=== PATIENT | female | born 1935 | race Caucasian/White ===

== ENCOUNTER 2017-07-16 10:04 | Inpatient (IN) | payer MEDICARE, OTHER ==
[~2017-07-16] VITALS: Ht 170.2 cm; Wt 85.0 kg
--- NOTE | ~2017-07-16 | CN ---
PATIENT NAME:BAUTISTA BENJAMIN MEDICAL RECORD: [id number] : 39 LOCATION:D.M2 D.2125 ADMIT DATE: 07/16/17 ACCOUNT: [id number] CONSULTING PHYSICIAN: ALIE ARREDONDO MD REFERRING PHYSICIAN: ISABEL ULLOA MD DATE OF CONSULTATION: 07/17/2017 DIAGNOSES: 1. Chest pain. 2. Pneumonia. HISTORY OF PRESENT ILLNESS: Ms. Benjamin had very atypical chest pain associated with coughing and deep inspiration. She has no cardiac history. Troponins are negative. Her EKG is normal. PHYSICAL EXAMINATION: GENERAL APPEARANCE: Well-nourished, well-developed, appears stated age. Level of distress, comfortable. PSYCHIATRIC: Mental status, alert, normal affect. Orientation, oriented to time, place and person. EYES: Lids and conjunctiva, noninjected. No discharge, no pallor. ENT: Lips, teeth, gums, normal dentition. Oropharynx, no cyanosis, no pallor. NECK: Carotid arteries, bilateral normal upstroke, no bruits, no thrills. JUGULAR VEINS: No jugular venous pressure or distention. CERVICAL LYMPH NODES: Nontender, nonenlarged. THYROID: Not enlarged. Nontender. No nodules. LUNGS: Respiratory effort, unlabored. CHEST: Normal curvature. No thoracic deformity. No chest wall tenderness. Percussion, resonant. Auscultation, clear. No wheezes, no rales, no rhonchi. CARDIOVASCULAR: Precordial exam, nondisplaced. No heaves or pericardial thrills. Rate and rhythm, regular. Heart sounds, normal S1, normal S2. No S3, no gallop, no rub. Systolic murmur, not heard. Diastolic murmur, not heard. EXTREMITIES: No cyanosis, no edema. Peripheral pulses, full and equal in all extremities, except as noted. No bruits appreciated. ABDOMEN: Soft, nondistended. Normal aorta. No bruit. Nontender. No masses. Liver, nontender, no hepatomegaly. Spleen, nontender, no splenomegaly. MUSCULOSKELETAL: No joint tenderness. No joint swelling. No erythema. NEUROLOGICAL: Normal gait, normal strength, normal tone. SKIN: Warm and dry. OVERALL IMPRESSION: Chest pain, not compatible with angina, compatible with musculoskeletal and bronchitic chest pain at this time. We will get an echo to make sure she has a normal ejection fraction and normal wall motion. No other cardiac workup treatment is necessary. TRANSINT:[id number] Voice Confirmation ID: [id number] DOCUMENT ID: [id number] CONSULT REPORT [id number] BAUTISTA BENJAMIN, ALIE GARNER at 1153 CC: [id number] DICTATION DATE: 07/17/17 1024 SUPERVISOR TELEPHONE ANSWERING SERVICE: 07/17/17 1124 ADM IN [place] [id number]
--- NOTE | ~2017-07-16 | EC ---
PATIENT:BAUTISTA BENJAMIN DATE OF SERVICE: 07/16/17 SEX: F MEDICAL RECORD: [id number] DATE OF : 39 LOCATION:D. D.212 AGE OF PATIENT: 82 ADMISSION DATE: 07/16/17 REFERRING PHYSICIAN: INTERPRETING PHYSICIAN: ALIE GANN MD ECHOCARDIOGRAM REPORT ECHO CHARGES 4 ECHO COMPLETE CLINICAL DIAGNOSIS: CP ECHOCARDIOGRAPHIC MEASUREMENTS (adult normal given) AC root (d.<3.7cm) 3.2 cm LV Septum d (<1.2 cm> 1.7 cm Valve Excursion 1.3 cm LV Septum (systole) 2.4 cm Left Atria (s.<4.0cm> 3.9 cm LVPW d(<1.2cm) 1.2 cm RV (d.<2.3cm) 2.9 cm LVPW (sytole) 1.8 cm LV diastole(<5.6CM) 5.4 cm MV E-F(>70mm/sec) cm LV systole 2.8 cm LVOT Diameter 2.0 cm MV exc.(>10mm) cm Est.ejection fraction (50-75%) % Pericardial Effusion N DOPPLER: LVIT cm/sec A 154 cm/sec E 110 cm/sec LA cm/sec RVSP 49.4 mmHg LVOT 104 cm/sec AOP1/2T m/s Asc. Ao 235 cm/sec RVOT 80.0 cm/sec RA cm/sec PA 90.0 cm/sec AV Gradient Peak 22.0 mmHg AV Mean 11.4 mmHg AV Area 1.6 cm MV Gradient Peak 11.0 mmHg MV Mean 3.1 mmHg MV Area cm COMMENTS: Cook Dinner: Damir GASTELUMOE Flake [employer] Wheat [employer] Oats: 1 Dr. Gann TAPE# PACS DATE OF SERVICE: 07/17/2017 Echocardiogram FINDINGS: 1. Left ventricular chamber size is within normal limits. Left ventricular systolic function is normal. Overall ejection fraction estimated at 60%. 2. Left atrium is within normal limits at 3.9 cm. Right atrium and right ventricular chamber sizes are mildly dilated. 3. Valvular structures have normal structure and motion. ECHOCARDIOGRAM REPORT [id number] BAUTISTA BENJAMIN 4. Doppler interrogation reveals moderate mitral regurgitation, moderate tricuspid regurgitation, no other valvular insufficiency or stenosis. Pulmonary systolic pressure is elevated estimated at 50 mmHg. 5. No evidence of pericardial effusion or left ventricular thrombus. TRANSINT:[id number] Voice Confirmation ID: [id number] DOCUMENT ID: [id number] ALIE GANN MD at 1202 CC: [id number] DICTATION DATE: 07/17/17 1415 MOTH PROOFER: 07/17/17 1422 DIS IN 07/20/17 [place] [id number] [place] [id number]
--- NOTE | ~2017-07-16 | CN ---
PATIENT NAME:BAUTISTA BENJAMIN MEDICAL RECORD: [id number] : 39 LOCATION:D. D.2125 ADMIT DATE: 07/16/17 ACCOUNT: [id number] CONSULTING PHYSICIAN: HAMLET AGGARWAL MD REFERRING PHYSICIAN: ISABEL ULLOA MD DATE OF CONSULTATION: 07/16/2017 CONSULT REQUESTING PHYSICIAN: Isabel Ulloa MD REASON FOR CONSULTATION: Pneumonia. HISTORY OF PRESENT ILLNESS: Ms. Benjamin is an 82-year-old female, who has a flu in April. Since last weekend, she is sick, she is coughing, she has shortness of breath. She was seen in the PCP office, she was given Z-MITZI, but she was getting worse. She is also complaining of left-sided chest pain, which is pleuritic in nature. Also, she vomited once. She has a fever of 100.7. REVIEW OF SYSTEMS: Mainly in the history of present illness. PAST MEDICAL HISTORY: 1. Hypertension. 2. Hypothyroidism. PAST SURGICAL HISTORY: Hysterectomy, bilateral total knee replacement. PERSONAL AND SOCIAL HISTORY: The patient is a nonsmoker, nondrinker. FAMILY HISTORY: Noncontributory. PHYSICAL EXAMINATION: GENERAL: Now, the patient is lying comfortably in bed. She is not in acute distress. VITAL SIGNS: Her pulse ox is 96% on room air. HEENT: Conjunctivae pink, sclerae nonicteric. NECK: Neck is supple, no JVD. CHEST: There is a crackle at the left base. No wheezing. HEART: Rhythm regular, normal sound, no murmur. ABDOMEN: Abdomen is soft. Bowel sounds present. No hepatosplenomegaly. RECTAL: Deferred. EXTREMITIES: No cyanosis, no clubbing, no pedal edema. SKIN: The skin is warm, normal turgor. CENTRAL NERVOUS SYSTEM: The patient is awake and alert. There are no obvious cranial nerve abnormality. The gait was not tested. LABORATORY DATA: CBC: WBC 4.8, hemoglobin 11.7, hematocrit 36.6, platelet count is 143. Chemistry: Sodium 136, potassium 3.6, BUN is 15, creatinine 0.7. CHEST RADIOGRAPH: There is infiltrate in left lower lobe. IMPRESSION: 1. Pneumonia, left lower lobe, most likely community-acquired pneumonia. The patient failed Zithromax as an outpatient. 2. Pleurisy on the left side. 3. Chest pain. CONSULT REPORT [id number] BAUTISTA BENJAMIN 4. Acute cough. 5. Febrile illness. 6. Status post influenza in April 2017. 7. Nausea and vomiting. RECOMMENDATION: 1. I will discontinue Zithromax, start on Levaquin as the patient failed Zithromax as outpatient. 2. Continue Rocephin IV. 3. Pain control with ibuprofen 600 mg per oral t.i.d. after meals. 4. Antitussive. 5. Decrease methylprednisolone IV. 6. Follow up labs and chest radiograph. Dr. Ulloa, thank you for involving me in the care of Ms. Benjamin. TRANSINT:[id number] Voice Confirmation ID: [id number] DOCUMENT ID: [id number] HAMLET AGGARWAL MD at 1340 CC: ISABEL ULLOA [id number] DICTATION DATE: 07/16/17 1543 GUT PULLER: 07/16/17 1659 DIS IN 07/20/17 [place] [id number] [place] [address]
[~2017-07-16 10:04] MED LIST: ASPIRIN EC81 M1 PO; BACLOFEN10 MG PO; CELEXA10 MG PO; COZAAR100 MG PO; FISH OIL 1,2001 CAP PO; MOBIC7.5 MG PO; NORVASC5 MG PO; PRAVASTATIN SOD10 MG PO; PRILOSEC20 MG PO; SYNTHROID112 MCG PO; VITAMIN D31000 UNIT PO
[2017-07-16 10:38] LABS: BASOPHILS 0.4 % (0-2); EOSINOPHILS 0.6 % (0-7); HEMATOCRIT 36.6 % (36.0-48.0); HEMOGLOBIN 11.7 g/dL (12-16); LYMPHOCYTES 19.7 % (15-50); MCH 27.4 pg (26.0-34.0); MCV 85.7 fL (80.0-100.0); MEAN PLATELET VOLUME 9.7 fL (7.4-10.4); MONOCYTES 9.2 % (2-11); NEUTROPHILS 70.1 % (40-80); RBC 4.27 10x6/uL (4.00-5.40); RDW 14.7 % (11.5-14.5); WBC 4.8 10x3/uL (4.8-10.8)
[2017-07-16 10:48] LABS: PLATELET COUNT 143 10x3/uL (130-400)
[2017-07-16 11:33] LABS: ALKALINE PHOSPHATASE 63 U/L (46-116); ALT (SGPT) 18 U/L (10-68); BILIRUBIN - TOTAL 0.33 mg/dL (0.2-1.3); CALC OSMOLALITY 273 mosm/kg (275-300); CALCIUM 8.5 mg/dL (8.5-10.1); CARBON DIOXIDE 26.1 mmol/L (21.0-32.0); CHLORIDE - SERUM 99 mmol/L (98-107); CREATININE - SERUM 0.7 mg/dL (0.6-1.3); GLUCOSE 112 mg/dL (74-106); POTASSIUM - SERUM 3.6 mmol/L (3.5-5.1); PROTEIN - SERUM 6.6 g/dL (6.4-8.2); SODIUM 136 mmol/L (136-145); UREA NITROGEN 15 mg/dL (7-18); eGFR NON AFRICAN AMERICAN 85 mL/min (90-120)
[2017-07-16 12:22] LABS: APPEARANCE SLT CLOUDY (CLEAR); COLOR DK YELLOW (YELLOW)
[2017-07-16 12:23] LABS: BACTERIA FEW /hpf (NONE SEEN); BILIRUBIN NEGATIVE (NEGATIVE); EPITHELIAL CELLS RARE /hpf (0-5); GLUCOSE NEGATIVE (NEGATIVE); KETONE SMALL mg/dL (NEGATIVE); NITRITE NEGATIVE (NEGATIVE); PROTEIN TRACE mg/dL (NEGATIVE); RED CELLS - URINE RARE /hpf (0-5); SPECIFIC GRAVITY 1.015 (1.005-1.020); UROBILINOGEN NORMAL (NORMAL)
[2017-07-16 15:35] LABS: CREATINE KINASE 62 UL (21-215)
[2017-07-16 15:41] LABS: TROPONIN-I < 0.017 ng/mL (0.000-0.060)
[2017-07-16 21:00] LABS: CKMB 1.5 U/L (0.0-3.6); CREATINE KINASE 74 UL (21-215)
[2017-07-16 21:09] LABS: TROPONIN-I < 0.017 ng/mL (0.000-0.060)
[2017-07-17] VITALS: BP 130/64
[2017-07-17 02:22] LABS: BASOPHILS 0.3 % (0-2); EOSINOPHILS 2.1 % (0-7); HEMATOCRIT 33.3 % (36.0-48.0); HEMOGLOBIN 10.3 g/dL (12-16); LYMPHOCYTES 32.3 % (15-50); MCH 26.5 pg (26.0-34.0); MCHC 30.9 g/dL (31.0-37.0); MCV 85.8 fL (80.0-100.0); MEAN PLATELET VOLUME 9.5 fL (7.4-10.4); MONOCYTES 10.3 % (2-11); PLATELET COUNT 119 10x3/uL (130-400); RBC 3.88 10x6/uL (4.00-5.40); RDW 14.5 % (11.5-14.5)
[2017-07-17 02:24] LABS: WBC 3.4 10x3/uL (4.8-10.8)
[2017-07-17 02:47] LABS: ALBUMIN 2.4 g/dL (3.4-5.0); ALKALINE PHOSPHATASE 49 U/L (46-116); ALT (SGPT) 15 U/L (10-68); CALC OSMOLALITY 276 mosm/kg (275-300); CALCIUM 7.2 mg/dL (8.5-10.1); CARBON DIOXIDE 27.5 mmol/L (21.0-32.0); CHLORIDE - SERUM 102 mmol/L (98-107); CKMB 2.1 U/L (0.0-3.6); CREATINE KINASE 90 UL (21-215); CREATININE - SERUM 0.6 mg/dL (0.6-1.3); GLUCOSE 115 mg/dL (74-106); POTASSIUM - SERUM 3.6 mmol/L (3.5-5.1); PROTEIN - SERUM 5.5 g/dL (6.4-8.2); SODIUM 138 mmol/L (136-145); TROPONIN-I < 0.017 ng/mL (0.000-0.060); UREA NITROGEN 13 mg/dL (7-18); eGFR NON AFRICAN AMERICAN > 90 mL/min (90-120)
[2017-07-17 08:26] VITALS: BP 142/68
[2017-07-17 11:00] VITALS: Ht 170.2 cm; Wt 85.0 kg
[2017-07-17 11:13] VITALS: BP 131/75
[2017-07-17 20:54] VITALS: BP 147/71
[2017-07-18] VITALS (7 sets, daily range): BP systolic 134–183; BP diastolic 66–81
[2017-07-18 05:43] LABS: BASOPHILS 0.3 % (0-2); EOSINOPHILS 0.3 % (0-7); HEMOGLOBIN 10.2 g/dL (12-16); IMMATURE GRANULOCYTES 0.3 % (0-5); LYMPHOCYTES 31.8 % (15-50); MCH 26.2 pg (26.0-34.0); MCHC 30.9 g/dL (31.0-37.0); MCV 84.8 fL (80.0-100.0); MEAN PLATELET VOLUME 10.5 fL (7.4-10.4); MONOCYTES 11.8 % (2-11); NEUTROPHILS 55.5 % (40-80); RBC 3.89 10x6/uL (4.00-5.40); RDW 14.1 % (11.5-14.5); WBC 3.9 10x3/uL (4.8-10.8)
[2017-07-18 05:48] LABS: PLATELET COUNT 158 10x3/uL (130-400)
[2017-07-18 06:18] LABS: ALBUMIN 2.6 g/dL (3.4-5.0); ALKALINE PHOSPHATASE 49 U/L (46-116); ALT (SGPT) 15 U/L (10-68); BILIRUBIN - TOTAL 0.27 mg/dL (0.2-1.3); CALC OSMOLALITY 275 mosm/kg (275-300); CALCIUM 8.4 mg/dL (8.5-10.1); CHLORIDE - SERUM 102 mmol/L (98-107); CREATININE - SERUM 0.6 mg/dL (0.6-1.3); GLUCOSE 108 mg/dL (74-106); POTASSIUM - SERUM 3.6 mmol/L (3.5-5.1); PROTEIN - SERUM 5.9 g/dL (6.4-8.2); SODIUM 138 mmol/L (136-145); UREA NITROGEN 10 mg/dL (7-18); eGFR NON AFRICAN AMERICAN > 90 mL/min (90-120)
[2017-07-19 05:37] LABS: BASOPHILS 0.2 % (0-2); EOSINOPHILS 0.2 % (0-7); HEMATOCRIT 32.4 % (36.0-48.0); HEMOGLOBIN 10.2 g/dL (12-16); MCH 26.6 pg (26.0-34.0); MCHC 31.5 g/dL (31.0-37.0); MCV 84.4 fL (80.0-100.0); MEAN PLATELET VOLUME 9.8 fL (7.4-10.4); MONOCYTES 10.6 % (2-11); PLATELET COUNT 164 10x3/uL (130-400); RBC 3.84 10x6/uL (4.00-5.40); RDW 14.2 % (11.5-14.5); WBC 4.5 10x3/uL (4.8-10.8)
[2017-07-19 05:50] LABS: ALBUMIN 2.7 g/dL (3.4-5.0); ALKALINE PHOSPHATASE 43 U/L (46-116); ALT (SGPT) 18 U/L (10-68); CALC OSMOLALITY 280 mosm/kg (275-300); CARBON DIOXIDE 30.3 mmol/L (21.0-32.0); CHLORIDE - SERUM 104 mmol/L (98-107); CREATININE - SERUM 0.6 mg/dL (0.6-1.3); GLUCOSE 109 mg/dL (74-106); POTASSIUM - SERUM 3.6 mmol/L (3.5-5.1); PROTEIN - SERUM 5.8 g/dL (6.4-8.2); SODIUM 140 mmol/L (136-145); eGFR NON AFRICAN AMERICAN > 90 mL/min (90-120)
[2017-07-19 05:51] LABS: UREA NITROGEN 15 mg/dL (7-18)
[2017-07-19 05:55] VITALS: BP 150/69
[2017-07-19 08:38] VITALS: BP 160/65
[2017-07-19 11:24] VITALS: BP 145/53
[2017-07-19 16:05] VITALS: BP 151/64
[2017-07-19 20:15] VITALS: BP 126/66
[2017-07-20 00:30] VITALS: BP 130/64
[2017-07-20 05:20] LABS: BASOPHILS 0.2 % (0-2); EOSINOPHILS 0.2 % (0-7); HEMATOCRIT 34.9 % (36.0-48.0); HEMOGLOBIN 10.9 g/dL (12-16); IMMATURE GRANULOCYTES 0.3 % (0-5); LYMPHOCYTES 35.2 % (15-50); MCH 26.5 pg (26.0-34.0); MCHC 31.2 g/dL (31.0-37.0); MCV 84.7 fL (80.0-100.0); MEAN PLATELET VOLUME 9.7 fL (7.4-10.4); MONOCYTES 11.3 % (2-11); NEUTROPHILS 52.8 % (40-80); RBC 4.12 10x6/uL (4.00-5.40)
[2017-07-20 05:26] LABS: PLATELET COUNT 212 10x3/uL (130-400); WBC 6.1 10x3/uL (4.8-10.8)
[2017-07-20 06:07] LABS: ALKALINE PHOSPHATASE 47 U/L (46-116); ALT (SGPT) 21 U/L (10-68); CALC OSMOLALITY 277 mosm/kg (275-300); CALCIUM 8.5 mg/dL (8.5-10.1); CARBON DIOXIDE 28.7 mmol/L (21.0-32.0); CHLORIDE - SERUM 101 mmol/L (98-107); CREATININE - SERUM 0.6 mg/dL (0.6-1.3); GLUCOSE 99 mg/dL (74-106); POTASSIUM - SERUM 3.4 mmol/L (3.5-5.1); PROTEIN - SERUM 6.3 g/dL (6.4-8.2); SODIUM 138 mmol/L (136-145); UREA NITROGEN 17 mg/dL (7-18); eGFR NON AFRICAN AMERICAN > 90 mL/min (90-120)
[2017-07-20 06:24] VITALS: BP 138/62
[2017-07-20] MEDS ORDERED: LEVAQUIN750 MG PO (08:50)
[2017-07-20] MEDS ORDERED: PREDNISONE10 MG PO (08:59)
[2017-07-20 09:29] VITALS: BP 131/58
== END 2017-07-20 11:35 | disposition home or self-care (01) | DRG 190 ==
LOC: D.ER 10:04 → D.EDHOLD 13:44 → D.M2 13:44
PROVIDERS: Emergency Medicine; Family Medicine; Nurse Practitioner Family
DX: J44.0 Chronic obstructive pulmonary disease with (acute) lower respiratory infection (principal); J18.9 Pneumonia, unspecified organism; J98.11 Atelectasis; I10 Essential (primary) hypertension; E03.9 Hypothyroidism, unspecified; I08.1 Rheumatic disorders of both mitral and tricuspid valves

== ENCOUNTER 2018-07-22 14:26 | Inpatient (IN) | payer MEDICARE, OTHER ==
[~2018-07-22] VITALS: Ht 170.2 cm; Wt 78.0 kg
[~2018-07-22 14:26] MED LIST changes: +LEVAQUIN750 MG PO; +PREDNISONE10 MG PO
[2018-07-22 15:33] VITALS: BP 180/99
[2018-07-22 15:39] LABS: BASOPHILS 0.4 % (0-2); EOSINOPHILS 7.9 % (0-7); HEMATOCRIT 35.3 % (36.0-48.0); HEMOGLOBIN 10.9 g/dL (12-16); IMMATURE GRANULOCYTES 0.1 % (0-5); LYMPHOCYTES 28.6 % (15-50); MCH 25.2 pg (26.0-34.0); MCHC 30.9 g/dL (31.0-37.0); MCV 81.5 fL (80.0-100.0); MEAN PLATELET VOLUME 9.3 fL (7.4-10.4); MONOCYTES 8.9 % (2-11); NEUTROPHILS 54.1 % (40-80); PLATELET COUNT 222 10x3/uL (130-400); RBC 4.33 10x6/uL (4.00-5.40); RDW 15.6 % (11.5-14.5); WBC 7.5 10x3/uL (4.8-10.8)
[2018-07-22 15:49] LABS: APTT 27.5 SECONDS (22.8-39.4); PROTIME 12.7 SECONDS (11.6-15.0)
[2018-07-22 16:08] LABS: ALBUMIN 3.2 g/dL (3.4-5.0); ALKALINE PHOSPHATASE 76 U/L (46-116); ALT (SGPT) 16 U/L (10-68); BILIRUBIN - TOTAL 0.22 mg/dL (0.2-1.3); CALC OSMOLALITY 278 mosm/kg (275-300); CALCIUM 8.2 mg/dL (8.5-10.1); CARBON DIOXIDE 31.6 mmol/L (21.0-32.0); CHLORIDE - SERUM 102 mmol/L (98-107); CREATININE - SERUM 0.8 mg/dL (0.6-1.3); GLUCOSE 100 mg/dL (74-106); POTASSIUM - SERUM 3.4 mmol/L (3.5-5.1); PROTEIN - SERUM 6.7 g/dL (6.4-8.2); SODIUM 140 mmol/L (136-145); UREA NITROGEN 13 mg/dL (7-18); eGFR NON AFRICAN AMERICAN 73 mL/min (90-120)
--- NOTE | 2018-07-22 16:14 | NUR ---
PT ASSISTED WITH BEDPAN AT THIS TIME.
[2018-07-22 16:16] VITALS: BP 225/100
[2018-07-22 16:18] LABS: CKMB 1.5 U/L (0.0-3.6); CREATINE KINASE 71 UL (21-215); MAGNESIUM - SERUM 1.8 mg/dL (1.8-2.4); TROPONIN-I 0.029 ng/mL (0.000-0.060)
[2018-07-22 16:44] LABS: APPEARANCE CLEAR (CLEAR); BILIRUBIN NEGATIVE (NEGATIVE); COLOR YELLOW (YELLOW); GLUCOSE NEGATIVE (NEGATIVE); KETONE NEGATIVE (NEGATIVE); NITRITE NEGATIVE (NEGATIVE); PROTEIN TRACE mg/dL (NEGATIVE); SPECIFIC GRAVITY 1.005 (1.005-1.020); UROBILINOGEN NORMAL (NORMAL)
[2018-07-22 16:46] LABS: BACTERIA FEW /hpf (NONE SEEN); EPITHELIAL CELLS 0-5 /hpf (0-5); RED CELLS - URINE OCC /hpf (0-5); WHITE CELLS - URINE 0-5 /hpf (0-5)
[2018-07-22 18:31] VITALS: BP 198/87
[2018-07-22 19:00] VITALS: BP 231/107
[2018-07-22 19:11] VITALS: BP 157/73
--- NOTE | 2018-07-22 19:50 | NUR ---
ADMITTED FROM er VIA WC PATIENT NAUSEATED AT THIS TIME AND FEELS WEAK VERY LOW BP....CHECKED MANUALLY 98/62. LCTA PULSES BILATE AND PEDAL BOWEL SOUNDS X4 AND SKIN WARM AND DRY BED PUT LOW SRX2 AND CALL LIGHT IS IN REACH
[2018-07-22 20:00] VITALS: BP 90/40
[2018-07-23] VITALS (8 sets, daily range): BP systolic 98–141; BP diastolic 41–66; Ht 170.2 cm; Wt 78.0 kg
--- NOTE | 2018-07-23 05:27 | NUR ---
CO HEAD ACHE AND CONTINUED DIZZINESS WHEN SITTING UP
[2018-07-23 06:22] LABS: BASOPHILS 0.1 % (0-2); HEMATOCRIT 32.6 % (36.0-48.0); HEMOGLOBIN 9.9 g/dL (12-16); IMMATURE GRANULOCYTES 0.1 % (0-5); LYMPHOCYTES 19.4 % (15-50); MCHC 30.4 g/dL (31.0-37.0); MCV 82.3 fL (80.0-100.0); MEAN PLATELET VOLUME 9.9 fL (7.4-10.4); MONOCYTES 8.9 % (2-11); NEUTROPHILS 68.5 % (40-80); PLATELET COUNT 216 10x3/uL (130-400); RBC 3.96 10x6/uL (4.00-5.40); RDW 15.8 % (11.5-14.5); WBC 7.1 10x3/uL (4.8-10.8)
[2018-07-23 06:56] LABS: ALBUMIN 2.8 g/dL (3.4-5.0); ANION GAP 8.1 mmol/L (8-16); BILIRUBIN - TOTAL 0.37 mg/dL (0.2-1.3); CALCIUM 8.1 mg/dL (8.5-10.1); CARBON DIOXIDE 31.7 mmol/L (21.0-32.0); POTASSIUM - SERUM 3.8 mmol/L (3.5-5.1); PROTEIN - SERUM 5.8 g/dL (6.4-8.2)
--- NOTE | 2018-07-23 12:00 | NUR ---
PT TOOK SHOWER WITH HELP OF CHILD SPECIALIST AND HAD HAIR WASHED.
--- NOTE | 2018-07-23 12:19 | NUR ---
PT WANTING TO BE DNR. [employer] FILLED OUT AND DANYELL NAVARRO APN SIGNED DNR FORM.
--- NOTE | 2018-07-23 14:37 | NUR ---
PT'S ORTHOSTATIC VS ARE LYING: BP 120/66, HR 57, O2 SAT 92% ON ROOM AIR. SITTING: BP 113/59, HR 66, O2 SAT 95% ON ROOM AIR. STANDING: BP 118/61, HR 72, O2 SAT 91% ON ROOM AIR.
--- NOTE | 2018-07-23 14:40 | NUR ---
PT TAKEN FOR CT SCAN VIA WC.
--- NOTE | 2018-07-23 14:57 | NUR ---
PT RETURNED FROM CT SCAN.
--- NOTE | 2018-07-23 14:57 | NUR ---
SCD'S PLACED BILATERALLY ON PT'S LEGS.
[2018-07-23] MEDS ORDERED: SYNTHROID100 MCG PO (15:01)
--- NOTE | 2018-07-23 15:10 | NUR ---
SPOKE WITH KEVIN FROM [facility] HE STATES PT IS GOING TO GO FOR A RLE ARTERIOGRAM AGAIN ON THURSDAY AND THIS IS THE LAST TRY, BUT IT WILL BE AT 1100 AND PT NEEDS TO BE NPO AFTER MIDNIGHT THURSDAY AND PT WILL HAVE DIALYSIS LATE THURSDAY AFTER PROCEDURE AND TO LET DIALYSIS KNOW. HE ASLO STATES CANDY WILL PUT IN THE ORDERS FOR THE PROCEDURE LATER ON. I VERBALIZED UNDERSTANDING.
--- NOTE | 2018-07-23 15:12 | NUR ---
I CALLED AND SPOKE WITH ROLA FROM DIALYSIS AND STATED TO HER PT IS AHVING A RLE ARTERIOGRAM THURSDAY AFTER NOON SO PT WILL NOT GO FOR DIALYSIS UNTIL LATER THAT DAY. SHE VERBALIZED UNDERSTANDING.
--- NOTE | 2018-07-23 19:25 | NUR ---
ALERT AND AWAKE BED IS LOW AND CALL LIGHT IS IN REACH. LCTA ANAD SKIN IS WARM AND DRY SCDs ARE IN PLACE
[2018-07-24] VITALS: BP 115/68
--- NOTE | 2018-07-24 | NUR ---
I have reviewed this patient and I concur with the Shift Assessment completed by the Licensed Practical Nurse today this shift.
[2018-07-24 04:00] VITALS: BP 112/70
[2018-07-24 05:52] LABS: BASOPHILS 0.3 % (0-2); EOSINOPHILS 10.2 % (0-7); HEMATOCRIT 33.4 % (36.0-48.0); IMMATURE GRANULOCYTES 0.2 % (0-5); LYMPHOCYTES 27.7 % (15-50); MCH 24.8 pg (26.0-34.0); MCHC 29.9 g/dL (31.0-37.0); MCV 82.7 fL (80.0-100.0); MEAN PLATELET VOLUME 9.8 fL (7.4-10.4); MONOCYTES 10.7 % (2-11); NEUTROPHILS 50.9 % (40-80); PLATELET COUNT 198 10x3/uL (130-400); RBC 4.04 10x6/uL (4.00-5.40); RDW 15.8 % (11.5-14.5); WBC 6.5 10x3/uL (4.8-10.8)
[2018-07-24 06:14] LABS: ANION GAP 7.5 mmol/L (8-16); CALCIUM 8.1 mg/dL (8.5-10.1); CARBON DIOXIDE 32.2 mmol/L (21.0-32.0); CREATININE - SERUM 0.8 mg/dL (0.6-1.3); POTASSIUM - SERUM 3.7 mmol/L (3.5-5.1)
--- NOTE | 2018-07-24 08:00 | NUR ---
AM ROUNDS COMPLETED. VSS, AAOX4, RR EVEN AND UNLABORED, NO S/S OF RR DISTRESS. PT IN BED WITH EYES OPEN. AM MEDS GIVEN. STATES SHE IS HAVING A HEADACHE. PO TYLENOL GIVEN ALONGSIDE AM MEDS. WILL CTM. CL IN REACH, BED IN LOW, SR UPX2.
[2018-07-24 08:18] VITALS: BP 155/56
[2018-07-24 12:32] VITALS: BP 140/50
[2018-07-24 15:59] VITALS: BP 166/49
--- NOTE | 2018-07-24 18:14 | NUR ---
PT CURRENTLY RESTING IN BED. STATES THAT SHE FEELS LIKE SHE IS SLIDING OFF THE BED WHENEVER SHE CLOSES HER EYES. HELPED MOVE PT UP IN BED. PT STATES SHE IS COMFORTABLE NOW. WILL CTM. CL IN REACH, BED IN LOW, SR UP X2.
--- NOTE | 2018-07-24 19:30 | NUR ---
RECEIVED REPORT, WILL ASSUME CARE OF PT, DENIES ANY NEEDS, BED IS LOW, SRX2, CALL LIGHT IN REACH, WILL CONTINUE PLAN OF CARE
[2018-07-24 20:00] VITALS: BP 177/68
[2018-07-25] VITALS: BP 174/74
--- NOTE | 2018-07-25 00:11 | NUR ---
SLEEPING, NO DISTRESS NOTICED AT THIS TIME, BED IS LOW, SRX2, CALL LIGHT IN REACH, WILL CONTINUE PLAN OF CARE
--- NOTE | 2018-07-25 00:23 | NUR ---
PT PULLED IV OUT ON BLANKETS , WANTING TO WAIT ON IV RESTART, SAID THEY HAVE NOT BEEN USING IT,
--- NOTE | 2018-07-25 02:56 | NUR ---
I have reviewed this patient and I concur with the Shift Assessment completed by the Licensed Practical Nurse today this shift.
[2018-07-25 04:00] VITALS: BP 145/93
[2018-07-25 05:36] LABS: BASOPHILS 0.3 % (0-2); EOSINOPHILS 11.7 % (0-7); HEMATOCRIT 34.3 % (36.0-48.0); HEMOGLOBIN 10.5 g/dL (12-16); IMMATURE GRANULOCYTES 0.2 % (0-5); LYMPHOCYTES 29.6 % (15-50); MCH 25.2 pg (26.0-34.0); MCHC 30.6 g/dL (31.0-37.0); MCV 82.3 fL (80.0-100.0); MEAN PLATELET VOLUME 10.1 fL (7.4-10.4); MONOCYTES 8.8 % (2-11); NEUTROPHILS 49.4 % (40-80); PLATELET COUNT 234 10x3/uL (130-400); RBC 4.17 10x6/uL (4.00-5.40); RDW 15.6 % (11.5-14.5); WBC 6.4 10x3/uL (4.8-10.8)
[2018-07-25 05:45] LABS: CALC OSMOLALITY 280 mosm/kg (275-300); CALCIUM 8.2 mg/dL (8.5-10.1); CARBON DIOXIDE 33.7 mmol/L (21.0-32.0); CHLORIDE - SERUM 105 mmol/L (98-107); CREATININE - SERUM 0.6 mg/dL (0.6-1.3); GLUCOSE 101 mg/dL (74-106); POTASSIUM - SERUM 4.2 mmol/L (3.5-5.1); SODIUM 141 mmol/L (136-145); eGFR NON AFRICAN AMERICAN > 90 mL/min (90-120)
[2018-07-25 05:55] LABS: UREA NITROGEN 12 mg/dL (7-18)
--- NOTE | 2018-07-25 08:00 | NUR ---
AM ROUNDS COMPLETED. VSS, WITH SBP OF 186, AAOX3, RR EVEN AND UNLABORED, NO S/S OF RESP DISTRESS. AM MEDS GIVEN. NURSE FROM PREVIOUS SHIFT STATES PT IV CAME OUT WHILE PT WAS ASLEEP, BUT PT STATES SHE DOES NOT WANT THE NURSE TO START A NEW ONE. PT DENIES ANY NEEDS AT THIS TIME, STATES SHE WILL LIKE TO TALK TO THE DOCTOR. CL IN REACH, BED IN LOW, SR UPX2.
[2018-07-25 09:00] VITALS: BP 187/83
--- NOTE | 2018-07-25 11:23 | NUR ---
PT ORTHOSTATIC BP. LYING 163/65, SITTING 156/76, STANDING 154/78.
[2018-07-25 12:41] VITALS: BP 163/65
--- NOTE | 2018-07-25 13:27 | NUR ---
IV RESITED ON PT RIGHT HAND 22G. PT TOLERATE WELL. PT DENIES ANY FURTHER NEEDS AT THIS TIME. WILL CPOC.
[2018-07-25 16:25] VITALS: BP 143/95
--- NOTE | 2018-07-25 19:36 | NUR ---
RECEIVED REPORT, WILL ASSUME CARE OF PT, DENIES ANY NEEDS AT THIS TIME, BED IS LOW, SRX2, CALL LIGHT IN REACH, WILL CONTINUE PLAN OF CARE
[2018-07-25 20:26] VITALS: BP 175/75
--- NOTE | 2018-07-25 20:35 | NUR ---
VITALS-S LYING-175/75 SITTING-180/87 STANDING-184/82
[2018-07-26] VITALS (9 sets, daily range): BP systolic 142–171; BP diastolic 57–100
--- NOTE | 2018-07-26 01:51 | NUR ---
I have reviewed this patient and I concur with the Shift Assessment completed by the Licensed Practical Nurse today this shift.
[2018-07-26 06:13] LABS: BASOPHILS 0.3 % (0-2); EOSINOPHILS 11.6 % (0-7); HEMATOCRIT 35.6 % (36.0-48.0); HEMOGLOBIN 10.9 g/dL (12-16); IMMATURE GRANULOCYTES 0.2 % (0-5); LYMPHOCYTES 28.2 % (15-50); MCHC 30.6 g/dL (31.0-37.0); MCV 81.7 fL (80.0-100.0); MONOCYTES 9.3 % (2-11); NEUTROPHILS 50.4 % (40-80); PLATELET COUNT 221 10x3/uL (130-400); RBC 4.36 10x6/uL (4.00-5.40); RDW 15.7 % (11.5-14.5); WBC 6.5 10x3/uL (4.8-10.8)
[2018-07-26 06:21] LABS: CALC OSMOLALITY 282 mosm/kg (275-300); CALCIUM 8.6 mg/dL (8.5-10.1); CARBON DIOXIDE 30.4 mmol/L (21.0-32.0); CHLORIDE - SERUM 105 mmol/L (98-107); CREATININE - SERUM 0.6 mg/dL (0.6-1.3); GLUCOSE 104 mg/dL (74-106); POTASSIUM - SERUM 4.1 mmol/L (3.5-5.1); SODIUM 142 mmol/L (136-145); UREA NITROGEN 13 mg/dL (7-18); eGFR NON AFRICAN AMERICAN > 90 mL/min (90-120)
--- NOTE | 2018-07-26 07:45 | NUR ---
ORTHOSTATIC VS. LAYING 160/91, STANDING 148/86, SITTING 156/90. WILL CPOC.
--- NOTE | 2018-07-26 08:00 | NUR ---
RECIEVED BEDSIDE REPORT. AM ROUNDS COMPLETED. VSS, WITH BP 160/91. BP MEDS GIVEN ALONGSIDE AM MEDS. HELP ASSIST PT TO SHOWER. PT DENIES ANY FURTHER NEEDS FOR COMFORT CARE. WILL CPOC. CL IN REACH, BED IN LOW.
--- NOTE | 2018-07-26 14:14 | NUR ---
Nutrition follow-up: Diet: low sodium PO intake ~67% average x last 6 meals Labs reviewed +BM Wt: 172# PO intake fair to good at most meals RDN following.
--- NOTE | 2018-07-26 22:30 | NUR ---
REPORT RECIEVED AND ROUNDING COMPLETE. PT LAYING IN SUPINE POSITION. BREATHING SHALLOW AND UNLABORED. EYES CLOSED. CALL LIGHT WITHIN REACH AND BED IN LOWEST POSITION. ASSESMENT COMPLETE. PT BARELY WOKE UP ABLE LISTENING TO CHEST AND STOMACH SOUNDS. NO NEEDS AT THIS TIME.
[2018-07-27] VITALS: BP 149/61
--- NOTE | 2018-07-27 03:45 | NUR ---
PATIENT RESTING COMFORTABLY IN BED. RESPIRATIONS ARE EVEN AND UNLABORED. NO S/S OF DISTRESS. CALL IGHT WITHIN REACH. WILL CPOC.
[2018-07-27 04:20] VITALS: BP 148/47
[2018-07-27 05:06] LABS: BASOPHILS 0.5 % (0-2); HEMATOCRIT 35.7 % (36.0-48.0); HEMOGLOBIN 10.9 g/dL (12-16); IMMATURE GRANULOCYTES 0.2 % (0-5); LYMPHOCYTES 28.1 % (15-50); MCH 24.9 pg (26.0-34.0); MCHC 30.5 g/dL (31.0-37.0); MCV 81.5 fL (80.0-100.0); MEAN PLATELET VOLUME 9.6 fL (7.4-10.4); MONOCYTES 10.8 % (2-11); NEUTROPHILS 48.4 % (40-80); PLATELET COUNT 205 10x3/uL (130-400); RBC 4.38 10x6/uL (4.00-5.40); RDW 15.5 % (11.5-14.5); WBC 6.2 10x3/uL (4.8-10.8)
[2018-07-27 05:21] LABS: CALC OSMOLALITY 280 mosm/kg (275-300); CALCIUM 8.3 mg/dL (8.5-10.1); CARBON DIOXIDE 30.3 mmol/L (21.0-32.0); CHLORIDE - SERUM 104 mmol/L (98-107); CREATININE - SERUM 0.7 mg/dL (0.6-1.3); GLUCOSE 107 mg/dL (74-106); POTASSIUM - SERUM 3.9 mmol/L (3.5-5.1); SODIUM 140 mmol/L (136-145); eGFR NON AFRICAN AMERICAN 85 mL/min (90-120)
[2018-07-27 05:32] LABS: UREA NITROGEN 18 mg/dL (7-18)
--- NOTE | 2018-07-27 08:23 | NUR ---
SITTING UP EATING BREAKFAST WITHOUT COMPLAINTS. WILL CONTINUE TO MONITOR.
[2018-07-27 08:35] VITALS: BP 144/76
[2018-07-27 12:15] VITALS: BP 144/59
--- NOTE | 2018-07-27 15:04 | MORECARE ---
CASE MANAGEMENT DISCHARGE SUMMARY PATIENT: BAUTISTA BENJAMIN UNIT: [id number] ADM DATE: 07/24/18 AGE: 83 : 37 SEX: F ROOM/BED: D.2139 AUTHOR: CHICHI LOUIE PHYSICIAN: REFERRING PHYSICIAN: YEIMI MACHUCA MD DATE OF SERVICE: 07/27/18 Discharge Plan Patient Name: BAUTISTA BENJAMIN Facility: [facility]:[place] : 1935 Planned Disposition: Home Anticipated Discharge Date: 07/27/18 Discharge Date: Expected LOS: 3 Initial Reviewer: [email or web address] Initial Review Date: 07/27/2018 Generated: 07/27/18 4:04 pm Coverage Notice Reviewer: [email or web address] - Greg Foster Notice Issued Date-Time: 07/27/2018 13:35 Notice Type: IM Discharge Notice Notice Delivered To: Patient Relationship to Patient: Developer Advocate Name: Delivery Method: HAND - Hand Delivered Alondra Days: Prior Verbal Notification: Recipient Understood Notice: Yes Recipient Signature: Yes Med Rec Note Co-signed by Attending: Coverage Notice Comment: Patient Name: BAUTISTA BENJAMIN Page [phone] at 1504 All edits/amendments must be made on the electronic document DICTATION DATE: 07/27/18 1504 BLASTING CAP ASSEMBLER: OMI 07/27/18 1504 RPT#: [id number] DC DATE: STATUS: ADM IN [place] [address] [place] [address] END OF REPORT
--- NOTE | 2018-07-27 15:11 | NUR ---
IV DC WITH TIP INTACT. DISCHARGE INSTRUCTIONS GIVEN TO PT AND FRIEND. BOTH VERBALIZE UNDERSTANDING.
--- NOTE | 2018-07-27 15:12 | MORECARE ---
CASE MANAGEMENT DISCHARGE SUMMARY PATIENT: BAUTISTA BENJAMIN UNIT: [id number] ADM DATE: 07/24/18 AGE: 83 : 37 SEX: F ROOM/BED: D.7339 AUTHOR: CHICHI LOUIE PHYSICIAN: REFERRING PHYSICIAN: YEIMI MACHUCA MD DATE OF SERVICE: 07/27/18 Discharge Plan Patient Name: BAUTISTA BENJAMIN Facility: [facility]:[place] : 1935 Planned Disposition: Home Anticipated Discharge Date: 07/27/18 Discharge Date: Expected LOS: 3 Initial Reviewer: [email or web address] Initial Review Date: 07/27/2018 Generated: 07/27/18 4:12 pm DCPIA - Discharge Planning Initial Assessment Updated by [email or web address]: Greg Foster on 07/27/18 3:11 pm * Is the patient Alert and Oriented? Yes * How many steps to enter\exit or inside your home? * PCP DR. WHIPPLE * [facility] [place] * Preadmission Environment Home Alone * ADLs Independent * Equipment Back Brace Cane * Other Equipment NO MEDICAL EQUIPMENT PROVIDER PREFERENCE * List name and contact numbers for known caregivers / representatives who currently or will assist patient after discharge: LUISA OLIVARES, SISTER, * Verbal permission to speak to the caregivers and representatives has been obtained from the patient. N/A * Community resources currently utilized None * Please name any agencies selected above. NONE * Additional services required to return to the preadmission environment? No * Can the patient safely return to the preadmission environment? Yes * Has this patient been hospitalized within the prior 30 days at any hospital? No Coverage Notice Reviewer: [id number] - Greg Foster Notice Issued Date-Time: 07/27/2018 13:35 Notice Type: IM Discharge Notice Notice Delivered To: Patient Relationship to Patient: Abalone Fisherman Name: Delivery Method: HAND - Hand Delivered Alondra Days: Prior Verbal Notification: Recipient Understood Notice: Yes Recipient Signature: Yes Med Rec Note Co-signed by Attending: Coverage Notice Comment: Patient Name: BAUTISTA BENJAMIN Page [phone] at 1512 All edits/amendments must be made on the electronic document DICTATION DATE: 07/27/181511 BUSINESS SYSTEMS TECHNICIAN: OMI 07/27/181511 RPT#: [id number] DC DATE: STATUS: ADM IN [facility] [address] [place] [address] END OF REPORT
--- NOTE | 2018-07-27 15:15 | NUR ---
PT TO CAR VIA .
--- NOTE | 2018-07-27 15:19 | MORECARE ---
CASE MANAGEMENT DISCHARGE SUMMARY PATIENT: BAUTISTA BENJAMIN UNIT: [id number] ADM DATE: 07/24/18 AGE: 83 : 37 SEX: F ROOM/BED: D.5422 AUTHOR: LIBAN,DOC PHYSICIAN: REFERRING PHYSICIAN: YEIMI MACHUCA MD DATE OF SERVICE: 07/27/18 Discharge Plan Patient Name: BAUTISTA BENJAMIN Facility: [facility]:[place] : 1935 Planned Disposition: Home Anticipated Discharge Date: 07/27/18 Discharge Date: Expected LOS: 3 Initial Reviewer: [email or web address] Initial Review Date: 07/27/2018 Generated: 07/27/18 4:19 pm Comments DCP- Discharge Planning Updated by [email or web address]: Greg Foster on 07/27/18 2:[address] Patient Name: BAUTISTA BENJAMIN Admission Status: ER Accout number: [id number] Admission Date: 07-24-2018 : 1935 Admission Diagnosis: Attending: YEIMI MACHUCA Current LOS: 3 Anticipated DC Date: 07-27-2018 Planned Disposition: Home Primary Insurance: MEDICARE A & B Discharge Planning Comments: CM MET WITH PT IN ROOM TO DISCUSS DISCHARGE PLANNING AND NEEDS. PT REPORTS LIVING AT HOME INDEPENDENTLY AND ALONE. PT HAS BEDSIDE COMMODE AND CANE WITH NO MEDICAL EQUIPMENT PROVIDER PREFERENCE. PT HAS NO OUTSIDE SERVICES ASSISTING IN THE HOME. CM DISCUSSED AVAILABILITY OF HOME HEALTH, REHAB SERVICES AND MEDICAL EQUIPMENT. PT DENIES DISCHARGE NEEDS, REPORTS HER SISTER WILL PICK HER UP FOR DISCHARGE HOME TODAY. IMPORTANT MESSAGE FROM MEDICARE PROVIDED AND EXPLAINED. CRUCIBLE FURNACE TENDER NURSE NOTIFIED. Button Reclaimer: Greg Foster DCPIA - Discharge Planning Initial Assessment Updated by [email or web address]: Greg Foster on 07/27/18 3:11 pm * Is the patient Alert and Oriented? Yes * How many steps to enter\exit or inside your home? * PCP DR. WHIPPLE * Pharmacy [facility] IN [place] * Preadmission Environment Home Alone * ADLs Independent * Equipment Back Brace Cane * Other Equipment NO MEDICAL EQUIPMENT PROVIDER PREFERENCE * List name and contact numbers for known caregivers / representatives who currently or will assist patient after discharge: LUISA OLIVARES, SISTER, * Verbal permission to speak to the caregivers and representatives has been obtained from the patient. N/A * Community resources currently utilized None * Please name any agencies selected above. NONE * Additional services required to return to the preadmission environment? No * Can the patient safely return to the preadmission environment? Yes * Has this patient been hospitalized within the prior 30 days at any hospital? No Coverage Notice Reviewer: [email or web address] Angel Foster Notice Issued Date-Time: 07/27/2018 13:35 Notice Type: IM Discharge Notice Notice Delivered To: Patient Relationship to Patient: Waste Disposal Plant Operator Name: Delivery Method: HAND - Hand Delivered Alondra Days: Prior Verbal Notification: Recipient Understood Notice: Yes Recipient Signature: Yes Med Rec Note Co-signed by Attending: Coverage Notice Comment: Last DP export: 07/27/18 2:12 p Patient Name: BAUTISTA BENJAMIN Page [phone] at 1519 All edits/amendments must be made on the electronic document DICTATION DATE: 07/27/181518 ELECTRICIAN'S ASSISTANT: OMI 07/27/181518 RPT#: [id number] DC DATE: STATUS: ADM IN [facility] [address] [place] [address] END OF REPORT
== END 2018-07-27 15:19 | disposition home or self-care (01) | DRG 305 ==
LOC: D.ER 14:26 → D.EDHOLD 18:25 → OBSVTIME 18:25 → D.M2 19:01
PROVIDERS: Family Medicine; ADMIT Internal Medicine Nephrology; ATTEND Internal Medicine Nephrology
DX: I16.0 Hypertensive urgency (principal); D50.9 Iron deficiency anemia, unspecified; E87.6 Hypokalemia; K21.9 Gastro-esophageal reflux disease without esophagitis; E03.9 Hypothyroidism, unspecified; R42 Dizziness and giddiness; R51 Headache; G35 Multiple sclerosis

== ENCOUNTER 2019-08-21 14:59 | Emergency (ER) | payer MEDICARE, OTHER ==
[~2019-08-21] VITALS: Ht 170.2 cm; Wt 72.7 kg
[~2019-08-21 14:59] MED LIST changes: +SYNTHROID100 MCG PO
[2019-08-21 15:01] VITALS: Ht 170.2 cm; Wt 72.7 kg
[2019-08-21 15:39] LABS: APTT 20.9 SECONDS (22.8-39.4); CALC OSMOLALITY 273 mosm/kg (275-300); CALCIUM 8.6 mg/dL (8.5-10.1); CARBON DIOXIDE 28.8 mmol/L (21.0-32.0); CHLORIDE - SERUM 100 mmol/L (98-107); CREATININE - SERUM 0.9 mg/dL (0.6-1.3); GLUCOSE 139 mg/dL (74-106); INR 0.9 (0.85-1.17); POTASSIUM - SERUM 3.5 mmol/L (3.5-5.1); PROTIME 12.1 SECONDS (11.6-15.0); SODIUM 136 mmol/L (136-145); UREA NITROGEN 12 mg/dL (7-18); eGFR NON AFRICAN AMERICAN 63 mL/min (90-120)
[2019-08-21 15:56] LABS: ALKALINE PHOSPHATASE 78 U/L (30-120); BILIRUBIN - TOTAL 0.21 mg/dL (0.2-1.3); CKMB 0.9 U/L (0.0-3.6); CREATINE KINASE 34 UL (21-215); PROTEIN - SERUM 6.5 g/dL (6.4-8.2)
[2019-08-21 16:07] LABS: ALBUMIN 3.1 g/dL (3.4-5.0); MAGNESIUM - SERUM 2.1 mg/dL (1.8-2.4); TROPONIN-I < 0.017 ng/mL (0.000-0.060)
[2019-08-21 16:08] LABS: BASOPHILS 0.3 % (0-2); EOSINOPHILS 2.6 % (0-7); HEMATOCRIT 41.3 % (36.0-48.0); HEMOGLOBIN 13.1 g/dL (12-16); IMMATURE GRANULOCYTES 0.2 % (0-5); LYMPHOCYTES 23.8 % (15-50); MCH 30.1 pg (26.0-34.0); MCHC 31.7 g/dL (31.0-37.0); MCV 94.9 fL (80.0-100.0); MONOCYTES 8.6 % (2-11); NEUTROPHILS 64.5 % (40-80); PLATELET COUNT 216 10x3/uL (130-400); RBC 4.35 10x6/uL (4.00-5.40); RDW 13.5 % (11.5-14.5); WBC 6.7 10x3/uL (4.8-10.8)
[2019-08-21 16:08] LABS: ALT (SGPT) 16 U/L (10-68)
[2019-08-21 17:06] VITALS: BP 155/71
== END 2019-08-21 17:07 | disposition home or self-care (01) ==
LOC: D.ER 14:59
PROVIDERS: Emergency Medicine
DX: R42 Dizziness and giddiness (principal); R55 Syncope and collapse; I49.1 Atrial premature depolarization; E07.9 Disorder of thyroid, unspecified; I10 Essential (primary) hypertension; G35 Multiple sclerosis; K21.9 Gastro-esophageal reflux disease without esophagitis

== ENCOUNTER 2020-08-16 11:07 | Day surgery (SDC) | payer MEDICARE, OTHER, MEDICAID ==
[~2020-08-16] VITALS: Ht 170.2 cm; Wt 77.8 kg
--- NOTE | ~2020-08-16 | OP ---
PATIENT NAME: BAUTISTA BENJAMIN MEDICAL RECORD: [id number] :39 LOCATION:D.CAT ADMISSION DATE: SURGEON: JOB RAMOS MD DATE OF OPERATION: 08/16/2020 PREOPERATIVE DIAGNOSIS: Sick sinus syndrome with pauses. POSTOPERATIVE DIAGNOSIS: Sick sinus syndrome with pauses. PROCEDURE: 1. Left subclavian vein dual lead pacemaker placement. 2. Fluoroscopic interpretation. SURGEON: Job Ramos MD COSURGEON: Jordy Espinosa MD OPERATION IN DETAIL: The patient's left chest was prepped and draped in sterile fashion. A 25 mL of 1% lidocaine with epinephrine was infused into the surrounding tissues. A transverse incision was made on the left superior lateral chest and a subcutaneous pouch was made over the pectoral fascia. Woodland were used to cannulate the left subclavian vein. Guidewires were advanced under fluoroscopic guidance. These were placed in the superior vena cava. We then placed dilator trocar device over the wires and the wires and dilators were removed. The leads were advanced through the trocars and at this point, Dr. Espinosa positioned the leads appropriately in the atrium and ventricle. Once the leads were noted to be functioning appropriately, then the leads were sutured into place with 2-0 Ti-Cron. The leads were fixed to the pacemaker, which was placed into the subcutaneous pouch. The pacemaker was sutured to the pectoral fascia with single interrupted 2-0 Ti-Cron. We irrigated out the wound bed with antibiotic solution. The subcutaneous tissues were reapproximated with interrupted 3-0 Vicryl and the skin was closed with a running subcutaneous 5-0 Monocryl. COMPLICATIONS: None. CONDITION: Stable. ANESTHESIA: Local MAC. BLOOD LOSS: Minimal. TRANSINT:[id number] Voice Confirmation ID: [id number] DOCUMENT ID: [id number] JOB RAMOS MD CC: [id number] DICTATION DATE: 08/16/20 1348 MOLDED GOODS INSPECTOR TRIMMER: 08/16/202207 [facility] 08/16/20 [place] [id number]
--- NOTE | ~2020-08-16 | HEMODYNAMI ---
PATIENT:BAUTISTA BENJAMIN MEDICAL RECORD: [id number] : 39 LOCATION:ROSE ADMISSION DATE: 08/16/20 Generatedon:113:54 Patient name: BAUTISTA BENJAMIN Patient #: [id number] SSN: DO B: 1935 Date of study: 08/16/2020 Page: Of Hemodynamic Procedure Report Patient Data Patient Demographics Procedure consent was obtained First Name: BAUTISTA Gender: Female Last Name: SOURAV : 1935 [facility] Initial: ROLA Age: 85 year(s) Patient #: [id number] Race: Additional ID: [id number] Contact details Address: [address] [place] [address] ROAD State: [place] City: [place] Zip code: [address] Past Medical History Allergies: No known allergies Admission Admission Data Admission Date: 08/16/2020 Admission Time: 11:07 Arrival Date: 08/16/2020 Arrival Time: 0:00 Height (in.): 66.93 BSA: 1.89 (m2) Height (cm.): 170 BMI: 26.99 (kg/m2) Weight (lbs.): 171.96 Weight (kg.): 78 Lab Results Lab Result Date: 08/16/2020 Lab Result Time: 0:00 Biochemistry Name Units Result Min Max BUN mg/dl 14 --(--*-)-- 7 18 Creatinine mg/dl 0.7 --(*---)-- 0.6 1.3 eGFR ml/min 85.26053 -*(----)-- 90 120 NONAFRICAN CBC Name Units Result Min Max Hematocrit % 38.7 *-(----)-- 42 54 Hemoglobin g/dl 12.3 *-(----)-- 13.5 17.5 Procedure Procedure Types Cath Procedure Diagnostic Procedure PPM/ICD PPM Dual Implant Sedation Charges Moderate Sedation 25-39 minutes Procedure Description Procedure Date Procedure Date: 08/16/2020 Procedure Start Time: 13:22 Procedure Staff Name Function Jordy Benjamin MD Performing Physician Sukhwinder Nathan MD Assisting physician Amber Piedra RT Monitor Lina Sesay RT Scrub Trinidad Ayers RN Nurse Procedure Data Cath Procedure Fluoroscopy Diagnostic fluoroscopy Total fluoroscopy Time: 2.6 time: 2.6 min min Diagnostic fluoroscopy Total fluoroscopy dose: dose: 27.96 mGy 27.96 mGy Estimated blood loss: 5 ml Procedure Complications No complications Procedure Medications Medication Administration Route Dosage Oxygen etCO2 Nasal cannula 2 l/min Lidocaine 1% added to field 20 Ancef (1Gm/50ml NS) I.V.P.B 1 g Ancef Irrigation Topical 1 g (1gm/500ml NS) 0.9% NaCl I.V. Versed I.V. 1 mg Fentanyl I.V. 50 mcg Versed I.V. 1 mg Fentanyl I.V. 50 mcg Fentanyl I.V. 50 mcg Fentanyl I.V. 50 mcg Hemodynamics Rest BSA: 1.89 (m2) O2 Consumption: Estimated: 159.12 (ml/min) O2 Consumption indexed : Estimated:84.19 (ml/min/m) Heart Rate: 57 (bpm) Snapshots Pre Cath Intra NCS Post Cath Vital Signs Time Heart Resp SPO2 etCO2 NIBP (mmHg) Rhythm Pain Sedation Rate (ipm) (%) (mmHg) Status Level (bpm) 13:14:03 58 21 98 0 208/85(178) NSR (Missing) 10(A) 13:18:37 54 18 100 46 192/78(161) NSR (Missing) 10(A) 13:23:03 55 24 100 23 191/86(156) NSR (Missing) 10(A) 13:27:34 71 16 100 38.6 184/76(147) NSR (Missing) 10(A) 13:32:33 59 10 99 37.8 Measuring NSR (Missing) 10(A) 13:32:51 57 10 99 43.8 184/80(125) NSR (Missing) 10(A) 13:37:16 61 14 100 43 188/87(140) NSR (Missing) 10(A) 13:42:14 49 11 100 28.9 Measuring NSR (Missing) 10(A) 13:42:51 62 10 100 43.8 178/83(159) NSR (Missing) 10(A) 13:47:13 60 11 100 42.3 187/87(139) NSR (Missing) 10(A) 13:52:13 60 15 98 48.2 Measuring NSR (Missing) 10(A) 13:52:35 61 16 98 44.5 176/82(150) NSR (Missing) 10(A) Medications Time Medication Route Dose Verified Delivered Reason Notes Effectiv eness by by 13:11:54 Oxygen etCO2 2 Jordy Buffie used for Nasal l/min St Jaskaran Ayers RN procedure cannula 13:12:05 Lidocaine added 20ml Jordy Quaker for local 1% to vial St Jaskaran Nathan MD anesthetic field x 2 13:12:15 Ancef I.V.P.B 1 g Jordy Buffie Per (1Gm/50ml St Jaskaran Ayers RN physician NS) 13:12:23 Ancef Topical 1 g Jordy Quaker used for Irrigation St Jaskaran Nathan MD procedure (1gm/500ml NS) 13:12:33 0.9% NaCl I.V. kvo Jordy Buffie Per ml/hr St Jaskaran Ayers RN physician 13:20:40 Versed I.V. 1 mg Jordy Buffie for Cassidy Ayers RN sedation 13:20:46 Fentanyl I.V. [address] [facility] Cassidy Ayers RN sedation 13:26:52 Versed I.V. 1 mg Jordy Buffie for Cassidy Ayers RN sedation 13:26:56 Fentanyl I.V. [address] [facility] Cassidy Ayers RN sedation 13:31:08 Fentanyl I.V. [address] [facility] Cassidy Ayers RN sedation 13:39:48 Fentanyl I.V. [address] [facility] Cassidy Ayers RN sedation Procedure Log Time Note 12:46:17 Informed consent obtained and on chart 12:48:56 Procedure Status PPM/ Gen Change/ Lead Revision/ Temp. 12:48:58 Time tracking: Regular hours (M-F 7:00 - 5:00) 12:49:02 Plan of Care:Hemodynamics will remain stable., Cardiac rhythm will remain stable., Comfort level will be maintained., Respiratory function will remain adequate., Patient/ family verbilizes understanding of procedure., Procedure tolerated without complication., Recovers from procedure without complications.. 12:50:27 H&P Date Dictated: 08/01/2020 Within 30 days and on chart., H&P Addendum completed by physician on day of procedure. (MUST COMPLETE FOR ALL OUTPATIENTS). 12:51:00 Trinidad Ayers RN sent for patient. Start room use. 12:51:10 Patient allergic to No known allergies 12:52:17 Lab Result : BUN 14 mg/dl 12:52:17 Lab Result : Creatinine 0.7 mg/dl 12:52:17 Lab Result : eGFR NONAFRICAN 85.38246 ml/min 12:52:17 Lab Result : Hemoglobin 12.3 g/dl 12:52:17 Lab Result : Hematocrit 38.7 % 12:52:24 Patient Weight : 171.96 lbs 12:52:26 Patient Height : 66.93 inches 12:52:34 Arrival Date: 08/16/2020 12:00:00 AM 12:53:01 [employer] territory representative SHRUTHI ANGELO present for procedure. 12:53:07 Use device set RICHARD PPM 12:53:08 2-0 Ticron Multipack ([id number]) opened to sterile field. 12:53:08 3-0 Vicryl Single Pack [id number] opened to sterile field. 12:53:09 5-0 Monocryl PS2 [id number] opened to sterile field. 12:53:15 Cautery Tip Dishtank Operator opened to sterile field. 12:53:16 Cautery Pushbutton Pencil opened to sterile field. 12:53:18 Mepilex Dressing ([id number]) opened to sterile field. 12:53:20 Immobilizer Large opened to sterile field. 12:53:29 Medtronic 4074-52 PPM Lead opened to sterile field. 12:53:30 Medtronic 4574-45 PPM Lead opened to sterile field. 12:53:[address] Generator [id number] opened to sterile field. 13:04:21 Patient received from Pre/Post Procedure Room to CCL 3 Alert and oriented. Tansferred to table in Supine position. 13:04:22 Warm blankets applied, and michael hugger turned on for patient comfort. 13:04:22 Correct patient and procedure confirmed by team. 13:04:23 ECG and BP/O2 sat monitors applied to patient. 13:11:42 Vital chart was started 13:11:54 Oxygen 2 l/min etCO2 Nasal cannula was administered by Trinidad Ayers RN; used for procedure; Verbal order read back and verified. 13:12:05 Lidocaine 1% 20ml vial x 2 added to field was administered by Sukhwinder Nathan MD; for local anesthetic; Verbal order read back and verified. 13:12:15 Ancef (1Gm/50ml NS) 1 g I.V.P.B was administered by Trinidad Ayers RN; Per physician; Verbal order read back and verified. 13:12:23 Ancef Irrigation (1gm/500ml NS) 1 g Topical was administered by Sukhwinder Nathan MD; used for procedure; Verbal order read back and verified. 13:12:33 0.9% NaCl kvo ml/hr I.V. was administered by Trinidad Ayers RN; Per physician; Verbal order read back and verified. 13:13:39 Baseline sample Acquired. 13:13:44 Rhythm: sinus bradycardia 13:13:46 Full Disclosure recording started 13:13:46 Pre-procedure instructions explained to patient. 13:13:47 Pre-op teaching completed and patient verbalized understanding. 13:13:48 Family in patients room. 13:13:49 Patient NPO since Midnight. 13:13:55 Is patient on blood thinner?Yes 13:13:57 ACC The patient was administered the following blood thiners within the last 24 hours: ACCPlavix 13:13:59 Patient diabetic? No. 13:14:01 Previous problem with sedation/anesthesia? No ? 13:14:03 Snore? No 13:14:05 Sleep apnea? No 13:14:06 Deviated septum? No 13:14:06 Opens mouth fully? Yes 13:14:07 Sticks out tongue? Yes 13:14:09 Airway obstruction? No ? 13:14:11 Dentures? No ? 13:14:19 IV patent on arrival in left hand with 0.9% NaCl at KVO. 13:14:21 Lab results completed and on chart. 13:14:24 Left chest area was prepped with chlora-prep and draped in sterile fashion 13:14:25 Alarms reviewed by R. N. 13:14:26 Sharps counted by scrub and verified by R.N. 13:19:59 --------ALL STOP TIME OUT------ :59 Final Timeout: patient, procedure, and site verified with staff and physician. All members of the team are in agreement. 13:20:02 Left chest site verified by team. 13:20:05 Fire Safety Assessment: A--An alcohol-based skin anteseptic being used preoperatively., B--The operative or invasive procedure is being performed above the xiphoid process or in the oropharynx., C--Open oxygen or nitrous oxide is being used. 13:20:14 Physical assessment completed. ASA score P 2 - A patient with mild systemic disease as per Jordy Benjamin MD. 13:20:20 Sedation plan: IV Moderate Sedation Medication:Versed, Fentanyl 13:20:40 Versed 1 mg I.V. was administered by Trinidad Ayers RN; for sedation; Verbal order read back and verified. 13:20:46 Fentanyl 50 mcg I.V. was administered by Trinidad Ayers RN; for sedation; Verbal order read back and verified. 13:22:02 Pre sharps counted by scrub and verified by RN: Sutures: 7; Sponges: 5; Stick needles: 2; Skin needles: 2; Blade: 1; Cautery: 1 13:22:04 Grounding pad site Left thigh. 13:22:05 Grounding pad site free from injury. 13:22:44 Lidocaine 1% was administered to left subclavicular area by Sukhwinder Nathan MD . 13:26:28 Incision made to left subclavicular area. 13:26:52 Versed 1 mg I.V. was administered by Trinidad Ayers RN; for sedation; Verbal order read back and verified. 13:26:54 Generator pocket made/opened. 13:26:56 Fentanyl 50 mcg I.V. was administered by Trinidad Ayers RN; for sedation; Verbal order read back and verified. 13:28:57 Left subclavian vein accessed with 7Fr Peel Away Sheath. 13:29:05 Left subclavian vein accessed with 7Fr Peel Away Sheath. 13:29:07 Atrial lead inserted and advanced. 13:31:08 Fentanyl 50 mcg I.V. was administered by Trinidad Ayers RN; for sedation; Verbal order read back and verified. 13:33:12 Ventricular lead inserted and advanced. 13:34:03 Ventricular lead positioned. 13:34:21 Ventricular lead tested. 13:36:01 Atrial lead positioned. 13:36:13 Atrial lead tested. 13:37:12 Peel-a-way sheath was split and removed. 13:37:15 Peel-a-way sheath was split and removed. 13:37:19 PPM Dual was attached to lead(s) and inserted into pocket. 13:37:36 PPM Dual was inserted subcutaneously to left chest. 13:37:40 Device pocket was irrigated with Ancef. 13:37:43 Atrial lead attachment was completed with 2-0 ticron. 13:37:48 Ventricular lead attachment was completed with 2-0 ticron. 13:37:51 Generator was sutured in place with 2-0 ticron. 13:39:48 Fentanyl 50 mcg I.V. was administered by Trinidad Ayers RN; for sedation; Verbal order read back and verified. 13:40:47 Subcutaneous closure was completed with 3-0 vicryl. 13:40:54 Skin closure was completed with 5-0 monocryl. 13:41:17 Parameters-- Generator: Mode: AAIR/DDDR. Lower Rate: 69bpm. Upper Rate: 120bpm. 13:41:55 Parameters--Atrial P/R Wave: 4.7mV. Current: .5mA; Threshold: .4V; Impedence: 606OHMS. 13:42:16 Parameters--Ventricular P/R Wave: 7.9mV. Current: .5mA; Threshold: .2V; Impedence: 1543OHMS. 13:48:40 Lt Chest incision was dressed with Mepilex dressing AND PRESSURE DRESSING 13:48:43 Procedure ended.(Physican Out) 13:48:54 Fluoroscopy time 02.60 minutes. 13:49:00 Fluoroscopy dose: 27.96 mGy 13:49:00 Flurop Dose total: 27.96 13:49:04 Dose Area Product 382 mGy/cm. 13:49:12 Post-procedure physical assessment completed. ASA score P 2 - A patient with mild systemic disease as per Jordy Benjamin MD. 13:49:15 Post procedure rhythm: sinus rhythm , paced 13:49:17 Estimated blood loss: 5 ml 13:49:18 Post procedure instruction explained to patient.Patient verbalizes understanding. 13:49:19 Patient needs reinforcement of post procedure teaching. 13:49:44 Procedure type changed to Cath procedure, Diagnostic procedure, PPM/ICD, PPM Dual Implant, Sedation Charges, Moderate Sedation 25-39 minutes 13:52:16 Procedure and supply charges have been captured, reviewed, submitted and are correct. 13:52:19 Procedure Complication : No complications 13:52:21 Vital chart was stopped 13:52:23 Operative report dictated upon procedure completion. 13:52:23 See physician's report for complete and final results. 13:52:24 Report given to Pre/Post Procedure Room. 13:52:27 Patient transfered to Pre/Post Procedure Room with Bed. 13:52:53 End room use (Document Last) 13:53:26 End room use (Document Last) 13:54:01 End room use (Document Last) Device Usage Item Name Manufacture Quantity Catalog Hospital Part Current Minima l Lot# / Serial# Number Charge Number Stock Stock Code 2-0 Ticron Ethicon 6 [id number] [id number] [id number] 5 Multipack ([id number]) 3-0 Vicryl Ethicon 1 [id number] 899136 707290 229036 5 Single Pack [id number] 5-0 Monocryl Ethicon 1 Y495G 899643 683582 773242 5 PS2 Y495G Cautery Tip Microtek 1 [id number] 138145 829139 285422 5 [employer] Cautery Microtek 1 [id number] 281248 48732 [id number] 5 [employer] Pencil Mepilex Cardinal 1 [id number] 483025 407712 [id number] 5 [facility] ([id number]) Immobilizer Cardinal 1 [id number] 580560 524673 923656 5 [facility] Medtronic Medtronic 1 4074-52 055776 407072 071087 5 [id number] EXP 4074-52 PPM 01.29.22 Lead Medtronic Medtronic 1 4574-45 642996 694917 767867 5 [id number] EXP 4574-45 PPM 12.21.21 Lead Medtronic Medtronic 1 [id number] 363120 [id number] [id number] EXP:10.22.2021 Generator [id number] Signature Audit [place] Stage Time Signature Unsigned Intra-Procedure 08/16/2020 Amber Piedra 1:53:26 PM RT(R) Intra-Procedure 08/16/2020 Trinidad Ayers RN 1:54:01 PM Intra-Procedure 08/16/2020 Jordy Moncada 1:54:44 PM Jaskaran [facility] [address] [place] [address]
[~2020-08-16 11:07] MED LIST changes: +BETAPACE 80 MG80 MG PO; +ERGOCALCIF50000 UNIT PO; +PLAVIX75 MG PO; +TRAZODONE HCL50 MG PO
[2020-08-16] MEDS ORDERED: TYLENOL W/CODEI1 TAB PO (11:26)
[2020-08-16] MEDS ORDERED: ZOFRAN4 MG PO (11:26)
[2020-08-16] MEDS ORDERED: LANOXIN125 MCG PO (11:27)
[2020-08-16] MEDS ORDERED: MAGNESIUM OXID500 MG PO (11:28)
[2020-08-16] MEDS ORDERED: SYSTANE NIGHTT3.5 GM EACH EYE (11:28)
[2020-08-16 11:39] VITALS: BP 183/73; Ht 170.2 cm; Wt 77.8 kg
[2020-08-16 11:56] LABS: CALC OSMOLALITY 283 mosm/kg (275-300); CALCIUM 8.7 mg/dL (8.5-10.1); CARBON DIOXIDE 29.3 mmol/L (21.0-32.0); CHLORIDE - SERUM 105 mmol/L (98-107); CREATININE - SERUM 0.7 mg/dL (0.6-1.3); GLUCOSE 102 mg/dL (74-106); POTASSIUM - SERUM 3.8 mmol/L (3.5-5.1); SODIUM 142 mmol/L (136-145); UREA NITROGEN 14 mg/dL (7-18); eGFR NON AFRICAN AMERICAN 85 mL/min (90-120)
[2020-08-16 12:07] LABS: APTT 28.7 SECONDS (22.8-39.4); INR 1.03 (0.85-1.17); PROTIME 12.5 SECONDS (11.6-15.0)
[2020-08-16 12:12] LABS: HEMATOCRIT 38.7 % (36.0-48.0); HEMOGLOBIN 12.3 g/dL (12-16); MCH 30.4 pg (26.0-34.0); MCHC 31.8 g/dL (31.0-37.0); MCV 95.8 fL (80.0-100.0); MEAN PLATELET VOLUME 10.2 fL (7.4-10.4); RBC 4.04 10x6/uL (4.00-5.40); WBC 6.5 10x3/uL (4.8-10.8)
--- NOTE | 2020-08-16 14:10 | NUR ---
ARRIVES TO ROOM 5 VIA STRETCHER S/P PPM PLACEMENT , SEE EDI PROGRAMMER ANALYST, PT PLACED ON MONITORS ALARMS ON, LEFT ARM SLING IN PLACE. IV INFUSING PER ORDERS, PT DENIES PAIN OR NEEDS, PT PLACED IN SEMI FOWLERS POSITION, CALL LIGHT WITHIN REACH, FAMILY AT BEDSIDE
--- NOTE | 2020-08-16 14:40 | NUR ---
RESTING QUIETLY VISITNG WITH SISTER AT BEDSIDE, AAOX3, VSS, PACED PER MONITORS, LEFT CHEST DRESSING INPLACE WITH LEFT ARM SLING C/D/I , LEFT ARM WARM AND RADIAL PULSE PALPABLE, CAP REFILL WNL, IV INFUSING PER ORDERS, DENIES PAIN OR NEEDS. CALL [facility] WITHIN REACH , DISCHARGE TEACHING STARTED, PT AND SISTER VERBALIZED UNDERSTANDING
--- NOTE | 2020-08-16 14:55 | NUR ---
PT RESTING QUIETLY , DENIES PAIN OR NEEDS , DISCHARGE TEACHING STARTED WITH PT AND SISTER, PT VSS, PACED ON MONITORS, LEFT CHEST PRESSURE DRESSING REMOVED NO OOZING OR BLEEDING , INCISION SITE C/D/I MEPILEX DRESSING APPLIED. IV INFUSING PER ORDERS, CALL LIGHT WITHIN REACH
--- NOTE | 2020-08-16 15:15 | NUR ---
22G IV REMOVED FROM LEFT ARM CATHETER INTACT 2 X 2 DRESSING APPLIED, ASSISTED PT UP TO DRESS ALONG WITH HELP FROM HER SISTER, DISCHARGE TEACHING REVIEWED PT AND SISTER VERBALIZED UNDERSTANDING. PT DENIES PAIN OR NEEDS
--- NOTE | 2020-08-16 15:25 | NUR ---
PT DISCHARGED FROM UNIT, PT AMBULATES TO BATHROOM AND VOIDS WITHOUT DIFFICULTY, PT TAKEN TO FAMILY VEHICLE VIA WHEELCHAIR, DENIES PAIN OR NEEDS
--- NOTE | 2020-08-17 17:14 | OP ---
PATIENT NAME: BAUTISTA BENJAMIN MEDICAL RECORD: [id number] :39 LOCATION:D.CAT ADMISSION DATE: SURGEON: RASHEED CHAPMAN MD DATE OF OPERATION: 08/16/2020 PROCEDURE: Lead portion of permanent pacemaker placement. INDICATION: Sick sinus syndrome with pauses greater than 3 seconds. SURGEON: Sukhwinder Nathan M.D. DESCRIPTION OF PROCEDURE: After left subclavian was cannulated via modified Seldinger technique via Dr. Nathan first under fluoroscopic guidance, I placed the RV lead in the RV apex without difficulty. After adequate R waves and thresholds were obtained, again under fluoroscopic guidance, I placed right atrial lead in the right atrial appendage without difficulty. After adequate P waves and thresholds were obtained, the leads were then attached to the appropriate poles of the generator and pocket was closed via Dr. Nathan. IMPRESSION: Successful lead portion of permanent pacemaker placement on Bautista Benjamin. ESTIMATED BLOOD LOSS: Minimal. COMPLICATIONS: None. DISPOSITION: To the floor stable. TRANSINT:[id number] Voice Confirmation ID: [id number] DOCUMENT ID: [id number] RASHEED CHAPMAN MD at 1714 CC: [id number] DICTATION DATE: 08/16/20 1341 SUPERVISING LAW ENFORCEMENT ANALYST: 08/16/20 2244 [facility] [place] 08/16/[address] [address]
== END 2020-08-16 15:25 ==
LOC: D.CATH 11:07
PROVIDERS: ATTEND Internal Medicine Interventional Cardiology
DX: I49.5 Sick sinus syndrome (principal); I49.9 Cardiac arrhythmia, unspecified; I10 Essential (primary) hypertension; R06.00 Dyspnea, unspecified; R53.83 Other fatigue